=== PATIENT | male | born 1950 | race Native Hawaiian/Other Pacific Islander ===

== ENCOUNTER 2019-12-11 08:22 | Emergency (ER) | payer OTHER ==
[~2019-12-11] VITALS: Ht 175.3 cm; Wt 88.5 kg
[~2019-12-11 08:22] MED LIST: ACET5TAB36 PO; AZOR1 TA3 PO; FLUT0.05 NAS; MELOXICAM7.5 MG OR; PREVACID15 MG OR
[2019-12-11 08:39] VITALS: TEMP 98.5
[2019-12-11 09:48] LABS: PLATELET COUNT 134 K/uL (142-355)
[2019-12-11 10:24] LABS: POTASSIUM 3.4 mmol/L (3.6-5.2)
[2019-12-11 11:50] VITALS: BP 130/80
== END 2019-12-11 11:50 | disposition home or self-care (01) ==
LOC: ED 08:22
PROVIDERS: Family Medicine
DX: U07.1 COVID-19 (principal); J01.80 Other acute sinusitis
CPT/HCPCS: 36415; 80053; 81000; 83605; 85027; 87502; 87635; 87651; 96360; 96375; 99284; J2405; U0002

== ENCOUNTER 2021-11-28 08:50 | Outpatient (CLI) | payer OTHER | END 2021-11-28 20:24 | disposition home or self-care (01) | LOC: RESP 08:50 → US 10:00 → RESP 20:24 | PROVIDERS: ATTEND Internal Medicine | DX: R55 Syncope and collapse (principal) ==